=== PATIENT | female | born 1945 | race Caucasian/White ===

== ENCOUNTER → 2018-02-12 09:33 | Outpatient (CLI) | payer MEDICARE, OTHER, SELFPAY | PROVIDERS: PCP Student in an Organized Health Care Education/Training Program; Visit Provider Student in an Organized Health Care Education/Training Program | DX: Z78.0 Asymptomatic menopausal state (principal); R29.890 Loss of height; Z87.891 Personal history of nicotine dependence | CPT/HCPCS: 77080; 77081 ==

== ENCOUNTER → 2020-04-26 18:46 | Outpatient (ROUT) | payer MEDICARE, OTHER, SELFPAY ==
[2020-04-26 19:17] LABS: INR 0.9 (0.9-1.3); Prothrombin Time 10.3 SECONDS (10.1-12.7)
[2020-04-26 19:20] LABS: PTT Partial Thromboplastin Tim 35 SECONDS (26.4-36.2)
[2020-04-26 19:51] LABS: Add Manual Diff / Slide Review NO; Basophils Absolute Auto 100 /uL (0-100); Basophils Percent Auto 0.9 % (0-2); Eosinophils Absolute Auto 200 /uL (0-450); Eosinophils Percent Auto 3.1 % (2-4); Hemoglobin 13.3 g/dL (12.0-16.0); Lymphocytes Absolute Auto 1400 /uL (1100-4500); Lymphocytes Percent Auto 21.3 % (25-40); Mean Corpuscular HGB Conc 33.4 % (30-36); Mean Corpuscular Hemoglobin 29.6 PG (26-34); Mean Corpuscular Volume 88.6 fL (80-100); Monocytes Absolute Auto 300 /uL (0-900); Monocytes Percent Auto 4.3 % (3-14); Neutrophils Absolute Auto 4500 /uL (1500-7000); Neutrophils Percent Auto 70.4 % (50-75); Platelet Count 177 X10^3/uL (150-400); Red Blood Cell Count 4.51 X10^6/uL (4.0-5.2); Red Cell Distribution Width 13.6 % (11.6-14.8)
[2020-04-26 20:19] LABS: White Blood Cell Count 6.4 X10^3/uL (4.5-11.0)
== END ==
PROVIDERS: PCP Student in an Organized Health Care Education/Training Program; Visit Provider Internal Medicine
DX: H11.31 Conjunctival hemorrhage, right eye (principal)
CPT/HCPCS: 85025; 85610; 85730

== ENCOUNTER → 2021-02-20 08:49 | Outpatient (CLI) | payer MEDICARE, OTHER, SELFPAY ==
--- NOTE | 2021-02-20 08:51 | DI.RAD.S_ITS ---
PROCEDURE: XR ANKLE LT MIN 3V INDICATIONS: L ankle pain, fall TECHNIQUE: 3 views of the ankle were acquired. COMPARISON: None. FINDINGS: Bones: Comminuted fracture of the distal tibia which extends through the base of the medial malleolus. Mildly displaced fracture through the tip of the lateral malleolus. Soft tissues: No tibiotalar joint effusion. Achilles tendon appears normal. IMPRESSION: Distal tibia and fibular fractures Dictated by: Tina Ortega MD, PhD on 02/20/2021 at 9:24 Approved by: Tina Ortega MD, PhD on 02/20/2021 at 9:25
--- NOTE | 2021-02-20 08:51 | DI.RAD.S_ITS ---
PROCEDURE: XR FOOT LT MIN 3V INDICATIONS: L ankle pain, fall TECHNIQUE: 3 views of the foot were acquired. COMPARISON: None. FINDINGS: Bones: No fractures or dislocations involving the left foot. Distal tibia and fibular fractures noted detailed in dedicated left ankle x-ray series. No suspicious bony lesions. Soft tissues: No tibiotalar joint effusion. Achilles tendon appears normal. IMPRESSION: No left foot fracture or dislocation. If symptoms and/or clinical suspicion for pathology persists, further assessment with repeat radiographs (7-10 days) or advanced imaging (e.g. CT, MRI or bone scan) should be considered. Dictated by: Tina Ortega MD, PhD on 02/20/2021 at 9:25 Approved by: Tina Ortega MD, PhD on 02/20/2021 at 9:26
--- NOTE | 2021-02-20 08:51 | DI.RAD.S_ITS ---
PROCEDURE: XR TIBIA FIBULA LT 2V INDICATIONS: L ankle pain, fall TECHNIQUE: 2 views of the tibia and fibula were acquired. COMPARISON: None. FINDINGS: Bones: Distal tibia and fibular fractures noted. Soft tissues: No suspicious soft tissue calcifications or masses. Ankle periarticular soft tissue swelling noted in ligamentous injury cannot be excluded. IMPRESSION: Distal tibia and fibular fractures. Dictated by: Tina Ortega MD, PhD on 02/20/2021 at 9:26 Approved by: Tina Ortega MD, PhD on 02/20/2021 at 9:26
== END ==
PROVIDERS: PCP Student in an Organized Health Care Education/Training Program; Referring Provider Physician Assistant; Visit Provider Physician Assistant
DX: M25.572 Pain in left ankle and joints of left foot (principal); S82.392A Other fracture of lower end of left tibia, initial encounter for closed fracture; S82.832A Other fracture of upper and lower end of left fibula, initial encounter for closed fracture; W19.XXXA Unspecified fall, initial encounter
CPT/HCPCS: 73590; 73610; 73630

== ENCOUNTER → 2021-02-22 12:11 | Outpatient (CLI) | payer MEDICARE, OTHER, SELFPAY ==
[2021-02-22 14:11] LABS: COVID19 -Nasal RAPID Negative (Negative)
== END ==
PROVIDERS: PCP Student in an Organized Health Care Education/Training Program; Referring Provider Nurse Practitioner; Visit Provider Nurse Practitioner
DX: Z01.812 Encounter for preprocedural laboratory examination (principal); Z20.822 Contact with and (suspected) exposure to COVID-19
CPT/HCPCS: 87635

== ENCOUNTER → 2021-02-22 12:22 | Outpatient (CLI) | payer MEDICARE, OTHER, SELFPAY ==
--- NOTE | 2021-02-22 | DI.RAD.S_ITS ---
PROCEDURE: XR CHEST 2V INDICATIONS: Encounter for preprocedural laboratory examination TECHNIQUE: 2 views of the chest were acquired. COMPARISON: None. FINDINGS: Surgical changes and devices: None. Lungs and pleura: Bilateral basilar opacities. No pleural effusions or pneumothorax. Mediastinum: Mediastinal contours are normal. Heart size is normal. Bones and chest wall: No suspicious bony abnormalities. Soft tissues appear unremarkable. IMPRESSION: Bilateral basilar opacities may be infiltrate or atelectasis. Dictated by: Cyndy Reaves M.D. on 02/22/2021 at 14:14 Approved by: Cyndy Reaves M.D. on 02/22/2021 at 14:16
[2021-02-22 13:30] LABS: Alanine Aminotransferase 23 IU/L (<35); Albumin 4.4 g/dL (3.5-5.0); Albumin Globulin Ratio 1.6 (1.0-2.8); Alkaline Phosphatase 76 U/L (38-126); Aspartate Aminotransferase 29 IU/L (14-36); BUN Creatinine Ratio 22.2 (6-22); Bilirubin Total 0.4 mg/dL (0.2-1.3); Blood Urea Nitrogen 18 mg/dL (7-17); Calcium 9.4 mg/dL (8.4-10.2); Carbon Dioxide 26 mmol/L (22-32); Chloride 107 mmol/L (98-107); Estimated Glomerular Filt Rate > 60.0 mL/min (>60); Globulin 2.8 g/dL (1.7-4.1); Glucose 128 mg/dL (80-110); HEMOLYSIS < 15 (0-50); Potassium 3.7 mmol/L (3.4-5.1); Sodium 141 mmol/L (137-145); Total Protein 7.2 g/dL (6.3-8.2)
[2021-02-22 13:38] LABS: INR 1.1 (0.9-1.3); Prothrombin Time 11.9 SECONDS (10.1-12.7)
[2021-02-22 13:39] LABS: Fibrinogen 361 mg/dL (211-428); NT-proBNP (BNP-Adult 18+) 293 pg/mL (<125)
[2021-02-22 13:41] LABS: D Dimer 963 ng/mL (<230); PTT Partial Thromboplastin Tim 30 SECONDS (26.4-36.2)
[2021-02-22 14:08] LABS: Add Manual Diff / Slide Review NO; Basophils Absolute Auto 0 /uL (0-100); Basophils Percent Auto 0.6 % (0-2); Eosinophils Absolute Auto 300 /uL (0-450); Eosinophils Percent Auto 6.5 % (2-4); Hematocrit 36.7 % (36-46); Hemoglobin 12.5 g/dL (12.0-16.0); Lymphocytes Absolute Auto 1100 /uL (1100-4500); Lymphocytes Percent Auto 23.5 % (25-40); Mean Corpuscular Hemoglobin 29.7 PG (26-34); Mean Corpuscular Volume 87.2 fL (80-100); Monocytes Absolute Auto 300 /uL (0-900); Monocytes Percent Auto 7.2 % (3-14); Neutrophils Absolute Auto 3000 /uL (1500-7000); Neutrophils Percent Auto 62.2 % (50-75); Platelet Count 187 X10^3/uL (150-400); Red Blood Cell Count 4.21 X10^6/uL (4.0-5.2); Red Cell Distribution Width 13.3 % (11.6-14.8); White Blood Cell Count 4.8 X10^3/uL (4.5-11.0)
== END ==
PROVIDERS: PCP Student in an Organized Health Care Education/Training Program; Referring Provider Orthopaedic Surgery Foot and Ankle Surgery; Visit Provider Orthopaedic Surgery Foot and Ankle Surgery
DX: Z01.812 Encounter for preprocedural laboratory examination (principal); Z01.818 Encounter for other preprocedural examination; Z51.81 Encounter for therapeutic drug level monitoring; Z86.16 Personal history of COVID-19
CPT/HCPCS: 36415; 71046; 80053; 83880; 85025; 85379; 85384; 85610; 85730; 87635; 93005; C9803

== ENCOUNTER 2021-02-23 08:36 | Day surgery (SDC) | payer MEDICARE, OTHER, SELFPAY ==
[2021-02-22 10:44] VITALS: BMI 26.6
[2021-02-23] MEDS: LACTATED RINGERS 1,000 ML 100 ML IV (09:24)
[2021-02-23 09:25] VITALS: BMI 26.6
--- NOTE | 2021-02-23 10:37 | PM.PREOP ---
Pre-operative Note COVID-19 COVID-19 status: Negative Interval Note History & Physical reviewed/Exam performed by Physician: Yes Changes to H&P: No
--- NOTE | 2021-02-23 11:13 | SUR.PREOP ---
Block start time [1045] . Monitoring initiated and maintained throughout procedure. Oxygen and medications given per anesthesiologist. Patient remained stable throughout procedure, no adverse reactions noted. Block end time [1108].Pt left for OR with Rosmery in stable condition.
[2021-02-23] MEDS: CEFAZOLIN 1 GM VIAL 2 GM IV (11:15)
--- NOTE | 2021-02-23 11:38 | SUR.OPER ---
Supine on padded OR bed, head on pillow, arms secured on padded arm boards at <90 degrees abduction, left leg prepped and draped in sterile field, right leg uncrossed and secured with tape, safety belt at abdomen.
--- NOTE | 2021-02-23 11:56 | P.PCN_ITS ---
Procedures Date/Time Date of procedure: 02/23/21 Time of procedure: 10:50 General Procedure description: Ultrasound guided adductor canal and sciatic nerve block for post op pain control after left distal tibia ORIF by Dr. Bullard. Risk and benefits of procedure discussed with patient. ASA monitoring applied to patient. O2 given via nasal cannula. 2 mg Versed and 50 mcg fentanyl given for procedural sedation. Skin site was prepped with chlorhexidine and allowed to fully dry. Sterile gloves, mask, hat and probe cover were used to maintain sterility. 2% lidocaine and 30ga needle was used to make a small skin wheal at needle insertion site. Under ultrasound guidance, a 21ga 100mm Pajunk needle was directed into the adductor canal near femoral artery and saphenous nerve at the level of mid thigh. Patient reported no parasthesias. After negative aspiration, 20 mL 0.5% ropivacaine and 5mg dexamethasone were injected around saphenous nerve. In similar fashion, 100mm Pajunk directed in to the popliteal fossa near the sciatic nerve at the division of tibial and peroneal branches. 20 mL 0.5% ropivacaine and 5mg dex were injected. Patient tolerated procedure well. Upper Photo: Sciatic nerve at popliteal fossa; Lower Photo: sap henous nerve in adductor canal at mid thigh
--- NOTE | 2021-02-23 12:34 | DI.RAD.S_ITS ---
PROCEDURE: XR ANKLE LT MIN 3V INDICATIONS: LEFT ANKLE FX REPAIR TECHNIQUE: 4 spot fluoroscopic intraoperative views views of the ankle were acquired. COMPARISON: [facility], [facility], XR ANKLE LT MIN 3V, 02/20/2021, 8:48. FINDINGS: Intraoperative images demonstrating expected alignment of plate and screw fixation of the distal tibia. Hardware appears intact. Dictated by: Armando Rg M.D. on 02/23/2021 at 14:35 Approved by: Armando Rg M.D. on 02/23/2021 at 14:36
[2021-02-23 12:42] VITALS: BP 124/70; BP 130/70; PULSE 60; PULSE 68; RESP 15; RESP 18; TEMP 36.3; O2SAT 95
[2021-02-23 12:48] VITALS: BP 117/50; PULSE 58; RESP 19; TEMP 36.3; O2SAT 96
[2021-02-23 12:53] VITALS: BP 134/63; PULSE 53; RESP 11; TEMP 36.4; O2SAT 97
[2021-02-23] MEDS: OXYCODONE IR 5 MG TABLET PO (12:53)
[2021-02-23 13:07] VITALS: BP 151/53; PULSE 56; RESP 18; TEMP 36.4; O2SAT 97
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
[2021-02-23 13:51] VITALS: BP 151/68; PULSE 53; RESP 14; TEMP 36; O2SAT 98
== END 2021-02-23 13:50 | disposition home or self-care (01) ==
PROVIDERS: PCP Student in an Organized Health Care Education/Training Program; Referring Provider Orthopaedic Surgery Foot and Ankle Surgery; Visit Provider Orthopaedic Surgery Foot and Ankle Surgery
PROC: (CPT 27827; principal; 2021-02-23 10:45)
DX: S82.875A Nondisplaced pilon fracture of left tibia, initial encounter for closed fracture (principal); V18.0XXA Pedal cycle driver injured in noncollision transport accident in nontraffic accident, initial encounter; Z86.16 Personal history of COVID-19
CPT/HCPCS: 27827; 64450; 73610; 76000; J0690; J1100; J2250; J2405; J2704; J3010

== ENCOUNTER → 2021-06-01 14:09 | Outpatient (CLI) | payer MEDICARE, OTHER, SELFPAY ==
--- NOTE | 2021-06-01 14:11 | DI.MG.S_ITS ---
BILATERAL DIGITAL SCREENING MAMMOGRAM 3D/2D WITH CAD: 06/01/2021 CLINICAL: Routine screening. Comparison is made to exams dated: 07/08/2016 mammogram, 06/30/2015 mammogram, and 07/12/2013 mammogram - [facility]. The tissue of both breasts is heterogeneously dense. This may lower the sensitivity of mammography. Current study was also evaluated with a Computer Aided Detection (CAD) system. No significant masses, calcifications, or other findings are seen in either breast. There has been no significant interval change. IMPRESSION: NEGATIVE There is no mammographic evidence of malignancy. A 1 year screening mammogram is recommended. This exam was interpreted at Station ID: [id number]. NOTE: For mammograms, a report in lay terms will be sent to the patient. Approximately 15% of breast malignancies will not be visualized mammographically. In the management of a palpable breast mass, a negative mammogram must not discourage biopsy of a clinically suspicious lesion. Electronically Signed By: Wilfredo hayes/aracelis:06/01/2021 16:25:45 copy to: TERENCE HIDALGO letter sent: Normal Exam ACR BI-RADS Category 1: Negative 3341F
== END ==
PROVIDERS: PCP Student in an Organized Health Care Education/Training Program; Referring Provider Student in an Organized Health Care Education/Training Program; Visit Provider Student in an Organized Health Care Education/Training Program
DX: Z12.31 Encounter for screening mammogram for malignant neoplasm of breast (principal)
CPT/HCPCS: 77063; 77067

== ENCOUNTER → 2021-11-28 08:45 | Outpatient (CLI) | payer MEDICARE, OTHER, SELFPAY ==
[2021-11-28 12:03] LABS: COVID19 -Nasal RAPID Negative (Negative)
== END ==
PROVIDERS: PCP Student in an Organized Health Care Education/Training Program; Visit Provider Surgery
DX: Z20.822 Contact with and (suspected) exposure to COVID-19 (principal); Z01.812 Encounter for preprocedural laboratory examination
CPT/HCPCS: 87635; C9803

== ENCOUNTER 2021-11-29 08:14 | Day surgery (SDC) | payer MEDICARE, OTHER, SELFPAY ==
[2021-11-29 08:34] VITALS: BP 120/75; PULSE 72; RESP 16; TEMP 36.4; O2SAT 97
[2021-11-29 08:35] VITALS: BMI 25.9
[2021-11-29] MEDS: LACTATED RINGERS 1,000 ML 100 ML IV (08:56)
--- NOTE | 2021-11-29 09:52 | PM.HP.1 ---
History of Present Illness History of Present Illness Date Patient Seen: 11/29/21 Time Patient Seen: 09:52 Chief complaint: SCREENING COLONOSCOPY Narrative: Lexi is a 76-year-old woman who had a normal colonoscopy 10 years ago at [facility]. Patient History Medical History (Updated 11/29/21 @ 09:53 by Dustin Gallegos MD) Herpes (1998) Skin cancer Surgical History History of hip surgery History of hysterectomy (1994) Hx of neck surgery Family & Social History Social History: household members spouse Tobacco & Substance use: Smoking Status Former smoker alcohol intake current alcohol intake frequency a few times a week Substance Use Type does not use Meds Home Medications and Allergies Home Medications Medication Instructions Recorded Confirmed Type ondansetron HCl 4 mg tablet 4 mg PO Q8H PRN nausea and 02/23/21 11/29/21 Rx (Zofran) vomiting #7 tabs valacyclovir 500 mg tablet 50 mg PRN PRN Outbreak 11/29/21 11/29/21 History Allergies Allergy/AdvReac Type Severity Reaction Status Date / Time Penicillins [PENICILLINS] Allergy Mild Rash Verified 11/29/21 08:24 morphine [MORPHINE] Allergy Unknown Verified 11/29/21 08:24 Exam Vital Signs (past 8 hours): - 11/29/21 08:34 Temperature 97.6 F Pulse Rate 72 Respiratory Rate 16 Blood Pressure 120/75 Pulse Oximetry 97 Oxygen Delivery Method Room Air Oxygen Delivery Method Room Air Const General: healthy appearing Resp Effort & Inspection: normal respiratory effort Assessment & Plan Assessment and plan (1) Colon cancer screening: Status: Acute Plan We reviewed the risks and benefits of colonoscopy for colon cancer screening and she would like to proceed COVID-19 COVID-19 status: Negative Result date/Date tested (Pos, Neg/Pending): 11/28/21 Time Spent With Patient Critical Care time: I spent a total of [] minutes of critical care time on this patient's care today; this time is exclusive of procedural time.
[2021-11-29] MEDS: fentaNYL 250 MCG/5 ML INJ 125 MCG IV (10:05)
[2021-11-29] MEDS: MIDAZOLAM 5 MG/5 ML VIAL IV (10:07)
--- NOTE | 2021-11-29 10:17 | PM.OP.COLON ---
Operative Date/Time/Diagnoses Date of procedure: 11/29/21 Time of procedure: 10:17 Pre-op diagnosis: Colon cancer screening Post-op diagnosis: same Procedure & Clinicians Study performed: Colonoscopy Same procedure as scheduled: Yes Surgeon: Dustin Gallegos Procedure Notes Procedure in detail: Surgeon: Dustin Gallegos MD Procedure: The patient was brought to the endoscopy suite, placed in left lateral decubitus position. The patient was connected to monitoring devices. A time-out was performed. Sedation was administered. Once the patient was adequately sedated, a digital rectal exam was performed and was normal. The scope was then inserted and advanced to the cecum where the appendiceal orifice was identified and photographed. The scope was then slowly withdrawn over greater than 6 minutes. The mucosa was thoroughly inspected. There were scattered diverticula in the sigmoid colon. The scope was retroflexed in the rectum. There were mild internal hemorrhoids but no other abnormalities noted. The scope was straightened and removed. The patient was awakened and brought to recovery. Versed: 5 mg Fentanyl: 125 mcg EBL: 0 Findings: Normal colon Scope withdrawal time: 6 Sedation minutes: 16 Post-procedure Plan for aftercare: You may stop colon cancer screening Disposition: PACU
[2021-11-29 10:20] VITALS: BP 124/54; PULSE 59; RESP 11; TEMP 37.3; O2SAT 92
[2021-11-29 10:25] VITALS: BP 118/47; PULSE 66; RESP 20; O2SAT 94
[2021-11-29 10:30] VITALS: BP 123/60; PULSE 63; RESP 19; O2SAT 98
[2021-11-29 10:37] VITALS: BP 119/59; PULSE 62; RESP 12; TEMP 36.1; O2SAT 98
== END 2021-11-29 10:51 | disposition home or self-care (01) ==
PROVIDERS: PCP Student in an Organized Health Care Education/Training Program; Referring Provider Surgery; Visit Provider Surgery
PROC: 0DJD8ZZ Inspection of Lower Intestinal Tract, Via Natural or Artificial Opening Endoscopic (ICD-10-PCS; CPT 45378; principal; 2021-11-29 09:15)
DX: Z12.11 Encounter for screening for malignant neoplasm of colon (principal); K57.30 Diverticulosis of large intestine without perforation or abscess without bleeding; K64.8 Other hemorrhoids
CPT/HCPCS: G0121; 99152; J2250; J3010

== ENCOUNTER → 2022-02-01 07:35 | Outpatient (CLI) | payer MEDICARE, OTHER, SELFPAY ==
[2022-02-01 08:58] LABS: Estimated Glomerular Filt Rate > 60 mL/min (>60)
== END ==
PROVIDERS: PCP Student in an Organized Health Care Education/Training Program; Referring Provider Student in an Organized Health Care Education/Training Program; Visit Provider Student in an Organized Health Care Education/Training Program
DX: R10.12 Left upper quadrant pain (principal)
CPT/HCPCS: 36415; 82565

== ENCOUNTER → 2022-02-02 11:29 | Outpatient (CLI) | payer MEDICARE, OTHER, SELFPAY ==
--- NOTE | 2022-02-02 | DI.CT.S_ITS ---
PROCEDURE: CT ABDOMEN PELVIS W CON INDICATIONS: LEFT UPPER QUAD PAIN TECHNIQUE: After the administration of oral and IV contrast, axial sections were acquired from the lung bases to the pubic symphysis. Coronal and sagittal reformats were performed. For radiation dose reduction, the following was used: automated exposure control, adjustment of mA and/or kV according to patient size. COMPARISON: None. FINDINGS: Image quality: Excellent. Lung bases: No pleural effusion. Bibasilar atelectasis. Heart: No significant findings. ABDOMEN: Liver: Well-circumscribed hepatic hypodensity at the dome of the liver likely a benign cyst. Gallbladder: Not distended. Biliary ducts: Unremarkable. Pancreas: No peripancreatic fluid collection. Spleen: No splenomegaly. Adrenal Glands: No nodule. Kidneys and Ureters: No hydronephrosis. Simple cyst in the inferior right kidney Stomach and Bowel: Stomach is not significantly distended. There is a loop of proximal jejunum that is collapsed but may demonstrate wall thickening, (2/37). No small bowel obstruction. Extensive diverticulosis. No convincing diverticulitis. Clip at the left pelvis adjacent to the sigmoid colon. Normal appendix. Peritoneum: No abnormal intraperitoneal fluid. No free air. Ventral Wall: Tiny umbilical hernia. Clip at the right paramedian ventral abdominal wall. Abdominal Nodes: No retroperitoneal or mesenteric adenopathy by size criteria. Vessels: Aorta and inferior vena cava are normal in size. Mild plaque. PELVIS: Pelvic Organs: Unremarkable. Bladder: Unremarkable. Pelvic Nodes: No enlarged lymph nodes. Miscellaneous: No inguinal hernias are seen. Bones: No suspicious lesion. Bilateral hip arthroplasties. Anterolisthesis of L4 on L5 measuring 0.5 cm. Multilevel DDD. IMPRESSION: 1. Question mild small bowel wall thickening at the proximal jejunum. This could represent an enteritis. 2. Extensive diverticulosis. No convincing diverticulitis. No free fluid. 3. Normal appendix. Dictated by: Joby Ríos M.D. on 02/02/2022 at 13:39 Approved by: Joby Ríos M.D. on 02/02/2022 at 13:46
== END ==
PROVIDERS: PCP Student in an Organized Health Care Education/Training Program; Referring Provider Student in an Organized Health Care Education/Training Program; Visit Provider Student in an Organized Health Care Education/Training Program
DX: K57.90 Diverticulosis of intestine, part unspecified, without perforation or abscess without bleeding (principal); R10.12 Left upper quadrant pain
CPT/HCPCS: 74177; Q9967

== ENCOUNTER → 2022-08-19 09:37 | Outpatient (CLI) | payer MEDICARE, OTHER, SELFPAY ==
[2022-08-19 10:30] LABS: Influenza A - CEPHEID Flu A NEGATIVE (NEGATIVE); Influenza B - CEPHEID Flu B NEGATIVE (NEGATIVE); Respiratory Syncytial Virus Negative (Negative)
[2022-08-19 10:31] LABS: COVID-19 CEPHEID 4-PLEX PCR Negative (Negative)
== END ==
PROVIDERS: PCP Student in an Organized Health Care Education/Training Program; Visit Provider Physician Assistant
DX: R05.1 Acute cough (principal)
CPT/HCPCS: 0241U

== ENCOUNTER → 2024-02-27 07:54 | Outpatient (CLI) | payer MEDICARE, OTHER, SELFPAY ==
--- NOTE | 2024-02-27 | DI.MG.S_ITS ---
BILATERAL DIGITAL SCREENING MAMMOGRAM 3D/2D WITH CAD: 02/27/2024 CLINICAL: Routine screening. Comparison is made to exams dated: 06/01/2021 mammogram - [facility], 07/08/2016 mammogram, and 06/30/2015 mammogram - [facility]. Both breasts are heterogeneously dense, which may obscure small masses (category c / 51-75% glandular tissue). Current study was also evaluated with a Computer Aided Detection (CAD) system. No significant masses, calcifications, or other findings are seen in either breast. There has been no significant interval change. IMPRESSION: NEGATIVE There is no mammographic evidence of malignancy. A 1 year screening mammogram is recommended. Based on the Tyrer Cuzick model (a risk assessment model) the patient's lifetime risk is 4.1% and her 10 year risk is 0.0%. According to the ACR, ACS, and NCCN guidelines, an annual breast MRI exam along with mammogram is recommended if the patient's lifetime risk is 20% or greater. This exam was interpreted at Station ID: [id number]. NOTE: For mammograms, a report in lay terms will be sent to the patient. Approximately 15% of breast malignancies will not be visualized mammographically. In the management of a palpable breast mass, a negative mammogram must not discourage biopsy of a clinically suspicious lesion. Electronically Signed By: Joby cuevas/aracelis:02/27/2024 16:56:01 copy to: TERENCE HIDALGO letter sent: Normal Exam ACR BI-RADS Category 1: Negative 3341F
== END ==
LOC: MAMMO 07:56
PROVIDERS: PCP Student in an Organized Health Care Education/Training Program; Referring Provider Student in an Organized Health Care Education/Training Program; Visit Provider Student in an Organized Health Care Education/Training Program
DX: Z12.31 Encounter for screening mammogram for malignant neoplasm of breast (principal)
CPT/HCPCS: 77063; 77067

== ENCOUNTER → 2024-03-01 12:36 | Outpatient (CLI) | payer MEDICARE, OTHER, SELFPAY ==
--- NOTE | 2024-03-01 12:37 | DI.RAD.S_ITS ---
PROCEDURE: XR DEXA AXIAL SKELETON INDICATIONS: SCREENING FOR OSTEOPOROSIS COMPARISON: [facility], [facility], XR DEXA AXIAL SKELETON, 02/12/2018, 10:17. FINDINGS: Lumbar Spine: Bone mineral density 1.176 g/cm2, T score 1.2, compared to 1.4. Left Forearm: Bone mineral density 0.6 a 3 g/cm2, T score -0.2, compared to -0.3. Fracture Risk Calculation (when applicable): Not applicable (T score greater or equal to -1.0 to: NORMAL) (T score from -1.1 to -2.4: OSTEOPENIA) (T score less than or equal to -2.5: OSTEOPOROSIS) IMPRESSION: Relatively stable interval exam without defined osteopenia or osteoporosis. Follow-up guidelines as follows: Osteoporosis: Consider a repeat DEXA and Vertebral Fracture Assessment (VFA) exam in 2 years or sooner if medically necessary, to reassess this patient's status. Osteopenia: Consider a repeat DEXA in 2-3 years to reassess this patient's status, or if there is a new clinical indication. Normal: Consider a repeat DEXA in 5 years or sooner, or if there is a new clinical indication. All treatment decisions require clinical judgment and consideration of individual patient factors, including patient preferences, comorbidities, previous drug use, risk factors not captured in the FRAX model (e.g., frailty, falls, vitamin D deficiency, increased bone turnover, interval significant decline in bone density ) and possible under- or over-estimation of fracture risk by FRAX. In addition, the NOF Guide recommends that FDA-approved medical therapies be considered in postmenopausal women and men age >= 50 years with a: * Hip or vertebral (clinical or morphometric) fracture * T-score of <=-2.5 at the spine or hip * Ten-year fracture probability by FRAX of >= 3% for hip fracture or >=20% for major osteoporotic fracture. People with diagnosed cases of osteoporosis or at high risk for fracture should have regular bone mineral density tests. For patients eligible for Medicare, routine testing is allowed once every 2 years. The testing frequency can be increased to one year for patients who have rapidly progressing disease, those who are receiving or discontinuing medical therapy to restore bone mass, or have additional risk factors. Dictated by: Shy Atkins M.D. on 03/01/2024 at 21:43 Approved by: Shy Atkins M.D. on 03/01/2024 at 21:45
== END ==
LOC: RAD 12:36
PROVIDERS: PCP Student in an Organized Health Care Education/Training Program; Referring Provider Student in an Organized Health Care Education/Training Program; Visit Provider Student in an Organized Health Care Education/Training Program
DX: N95.9 Unspecified menopausal and perimenopausal disorder (principal)
CPT/HCPCS: 77080; 77081